=== PATIENT | female | born 1980 | race African-American/Black ===

== ENCOUNTER 2022-11-18 19:47 | Emergency (ER) | payer MEDICAID ==
[~2022-11-18] VITALS: Ht 157.5 cm; Wt 69.0 kg
[2022-11-18 20:23] VITALS: BP 147/79
[2022-11-18] MEDS ORDERED: IBUP-2030 MT (22:22)
== END 2022-11-18 23:01 | disposition home or self-care (01) ==
LOC: ER 19:47
DX: S93.402A Sprain of unspecified ligament of left ankle, initial encounter (principal); X58.XXXA Exposure to other specified factors, initial encounter; Y93.89 Activity, other specified; Y92.89 Other specified places as the place of occurrence of the external cause; Y99.8 Other external cause status; Z98.890 Other specified postprocedural states
CPT/HCPCS: 73610; 73630; 99284